=== PATIENT | male | born 1960 | race Caucasian/White ===

== ENCOUNTER 2017-12-01 10:59 | Emergency (ER) | payer OTHER ==
[~2017-12-01] VITALS: Ht 180.3 cm; Wt 109.1 kg
[2017-12-01 11:01] VITALS: BP 156/98; PULSE 83; RESP 17; TEMP 98.1; O2SAT 97
[2017-12-01] MEDS ORDERED: IBUP1TAB7 PO (12:28)
[2017-12-01] MEDS ORDERED: ROBA750T PO (12:28)
--- NOTE | 2017-12-01 12:29 | PD ---
HPI Chief Complaint: Back/ Neck Pain or Injury Time Seen by Provider: 12:14 Travel History International Travel<30 days: No Contact w/Intl Traveler<30days: No Traveled to known affect area: No History of Present Illness HPI This is a 57-year-old male here with upper back pain and stiffness times one week. He denies injury or trauma. He reports he awoke one morning and felt as if he slept on his neck wrong. Since then he has had increased stiffness and pain in the upper back. Pain is worsened by range of motion of the neck and shoulders. He reports similar symptoms in the past with muscle spasms. He reports he used to take cyclobenzaprine routinely for years for similar pain. He denies fever, chills, headache, visual changes, paresthesia or weakness of the extremities. Symptom severity is moderate. Aggravated by movement and slightly relieved with rest PFSH Past Medical History Cardiovascular Problems: Yes (HTN, hyperlipidemia, ) Diabetes: Yes Patient Takes Glucophage: Yes Hypertension: Yes Tetanus Vaccination: < 5 Years Social History Alcohol Use: No Tobacco Use: No Substance Use: No Allergies-Medications (Allergen,Severity, Reaction): Coded Allergies: No Known Allergies (Unverified , 12/01/17) Reported Meds & Prescriptions Reported Meds & Active Scripts Active Active Prescriptions or Reported Medications Unobtainable Review of Systems Except as stated in HPI: all other systems reviewed are Neg General / Constitutional: No: Fever Eyes: No: Visual changes Skin: No Rash Neurologic: No: Weakness Physical Exam Narrative GENERAL: Well-appearing 57-year-old male. No distress. SKIN: Warm and dry. HEAD: Normocephalic. Atraumatic EYES: Pupils equal, round, react to light. EOMs intact. No injection or drainage. NECK: Supple, trachea midline. No cervical midline tenderness. + Tenderness and muscle spasms to bilateral trapezius muscles. 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 Patient reports this is been present for "years". CARDIOVASCULAR: Regular rate and rhythm . RESPIRATORY: Breath sounds equal bilaterally. No accessory muscle use. GASTROINTESTINAL: Abdomen soft, non-tender, nondistended. MUSCULOSKELETAL: No cyanosis, or edema. Normal strength and sensation in upper extremities. Equal hand grasp. BACK: No midline spine tenderness. Without obvious deformity. No CVA tenderness. Data Data Last Documented VS Vital Signs Date Time Temp Pulse Resp B/P (MAP) Pulse Ox O2 Delivery O2 Flow Rate FiO2 12/01/17 11:01 98.1 83 17 156/98 (117) 97 MDM Medical Decision Making Medical Screen Exam Complete: Yes Emergency Medical Condition: Yes Differential Diagnosis Trapezius muscle spasm, cervical radiculopathy, cervical strain, unlikely cervical spine fracture Narrative Course This is a 57-year-old male here with bilateral trapezius muscle spasm. He has no midline spine tenderness. Normal neurologic exam. He will be treated with NSAIDs and muscle relaxers. He agrees to this plan Diagnosis Primary Impression: Trapezius muscle spasm Referrals: Primary Care Physician Additional Instructions: Medications as prescribed. Ice and/or heat for comfort. Follow up with her primary doctor. Scripts Ibuprofen (Ibuprofen) 800 Mg Tab 800 MG PO Q6HR Y for PAIN, #40 TAB 0 Refills Prov: Mary Beth Lambert 12/01/17 Methocarbamol (Robaxin) 750 Mg Tab 750 MG PO QID for Muscle Spasm, #15 TAB 0 Refills Prov: Mary Beth Lambert 12/01/17 Disposition: 01 DISCHARGE HOME Condition: Stable Mary Beth Lambert Dec 01, 2017 12:29
[2017-12-01] MEDS ORDERED: KETOROLAC TROMETHAMINE 60 MG/2 ML (IM) VIAL IM ONE (12:30)
[2017-12-01] MEDS ORDERED: ORPHENADRINE INJ 60 MG/2 ML AMP IM ONE (12:30)
== END 2017-12-01 12:47 | disposition home or self-care (01) ==
LOC: NEPK 10:59
DX: M62.830 Muscle spasm of back (principal)
CPT/HCPCS: 96372; 99283; J1885; J2360